=== PATIENT | female | born 1955 | race Caucasian/White ===

== ENCOUNTER 2016-12-02 11:59 | Emergency (ER) | payer OTHER ==
[2016-12-02 11:42] LABS: URINE SOURCE CLEAN CATCH
[~2016-12-02 11:59] MED LIST: AMBIEN; AMBIEN CR; AMBIEN10 MG PO; BENZONATATE PO; CIPRO PO; DELSYM30 MG/5 M1 PO; DIAZEPAM; DITROPAN5 MG PO; NORCO 5/325 TAB1 TAB; PHENERGAN25 M1 PO; PHENERGAN25 MG PO; PRINIVIL10 MG PO; PYRIDIUM PO; ZESTRIL40 MG PO; ZITHROMAX PO; ZITHROMAX1 G/PKT PO; ZOFRAN ODT4 MG PO
[2016-12-02 12:01] LABS: CULTURE INDICATED? YES; URBCS1 AUWI 0-2 /[HPF] (0-2); URINE APPEARANCE CLEAR; URINE BACTERIA AUWI 4+ (NEGATIVE); URINE BILIRUBIN NEG (NEG); URINE BLOOD NEG (NEG); URINE COLOR DK YELLOW; URINE GLUCOSE NEG (NEG); URINE KETONE TRACE (NEG); URINE LEUKOCYTE ESTERASE 1+ (NEG); URINE NITRATE POS (NEG); URINE PROTEIN NEG (NEG); URINE SQUAMOUS EPITHELIAL CELL OCC /[HPF]
== END 2016-12-02 14:38 | disposition home or self-care (01) ==
LOC: CED 11:59
PROVIDERS: Emergency Medicine
DX: N39.0 Urinary tract infection, site not specified (principal); I10 Essential (primary) hypertension; Z90.710 Acquired absence of both cervix and uterus; N81.10 Cystocele, unspecified
CPT/HCPCS: 81003; 87086; 87088; 87186; 99283

== ENCOUNTER 2017-02-02 10:18 | Emergency (ER) | payer OTHER ==
--- NOTE | ~2017-02-02 | CT4 ---
[facility] A Service of [facility] RADIOLOGY TEXT RESULTS PATIENT: KELLIE QUINTERO LOCATION: [facility] : 57 UNIT #: [id number] AGE: [address]: Inderjit Selby MD SEX: F ORDER DR: [id number] [facility] [address] [place], [place] [address] [id number] MR#: [id number] #: [id number] NAME: KELLIE QUINTERO. : 1955 SEX: F STUDY DATE/TIME: 02/02/2017 11:39 UNIT: [facility] ROOM: STUDY DESCRIPTION: CT Abd and Pelv Wo Cont Attending Physician: Inderjit Selby M.D. Ordering Physician: Inderjit Selby M.D. Primary Care Physician: Izabella Sanchez M.D. MEDICAL IMAGING REPORT This report is preliminary unless electronic signature is present EXAM CT scan of the abdomen and pelvis without contrast, 02/02/2017 HISTORY Right upper quadrant abdominal pain and vomiting for 4 days. Evaluate for obstructing renal calculus. TECHNIQUE Spiral CT was performed through the abdomen and pelvis without oral or intravenous contrast administration using renal stone protocol. This CT exam was performed with one or more of the following radiation dose reduction techniques: automatic exposure control, adjustment of mA and/or kV according to patient size, and iterative reconstruction. FINDINGS ABDOMEN: There is no obstructing renal or ureteral calculus. The kidneys are normal bilaterally. The visualized liver, spleen, pancreas and adrenal glands are normal. The gallbladder is surgically absent. PELVIS: There is colonic diverticulosis without evidence of diverticulitis. The gut is otherwise unremarkable. No adenopathy is seen and there is no free fluid in the abdomen or pelvis. The lung bases are normal. IMPRESSION 1. No obstructing renal or ureteral calculus. 2. Surgical absence of the gallbladder. 3. Diverticulosis. No evidence of diverticulitis. Dictated by... Carlos Augustin M.D. [facility] A Service [facility] RADIOLOGY TEXT RESULTS PATIENT: KELLIE QUINTERO LOCATION: [facility] : 57 UNIT #: [id number] AGE: [address]: Inderjit Selby MD SEX: F ORDER DR: THIS IS AN ELECTRONICALLY VERIFIED REPORT Carlos Augustin M.D. at 02/03/2017 8:07 AM JOSE LUIS/lorena TD: 02/02/2017 12:10 JOB #: [id number] MEDICAL IMAGING REPORT Page 1 of 1 COPY
[2017-02-02 11:39] LABS: BASOPHIL# 0.1 X10e3 (0-0.3); BASOPHIL% 0.9 % (0-2.5); EOSINOPHIL# 0.1 X10e3 (0-0.7); EOSINOPHIL% 0.6 % (0.0-7.0); HEMATOCRIT 45.2 % (35.0-45.0); HEMOGLOBIN 14.8 gm/dL (12.0-16.0); LYMPHOCYTE# 1.9 X10e3 (1.0-3.5); LYMPHOCYTE% 23.3 % (17.0-45.0); MEAN CELL VOLUME 88.1 FL (83-96); MEAN CORPUSCULAR HEMOGLOBIN 28.9 PG (28-34); MEAN CORPUSCULAR HGB CONC 32.9 g/dL (30-36); MEAN PLATELET VOLUME 7.9 FL (6.5-11.5); MONOCYTE# 0.7 X10e3 (0-1.0); MONOCYTE% 8.2 % (3.0-12.0); NEUTROPHIL# 5.3 X10e3 (1.5-7.1); PLATELET COUNT 318 X10e3 (140-420); RED BLOOD COUNT 5.13 X10e (3.90-5.30); RED CELL DISTRIBUTION WIDTH 13.9 % (11.0-15.5)
[2017-02-02 11:44] LABS: DIFF IND NO
[2017-02-02 12:04] LABS: BILIRUBIN, DIRECT 0.1 mg/dL (0.0-0.2); BILIRUBIN,TOTAL 1.1 mg/dL (0.2-2.0); CALCIUM SERUM 10.1 mg/dL (8.4-10.2); CREATININE SERUM 0.8 mg/dL (0.6-1.4); GLOM FILT RATE Estimated 79.6 mL/min (>60); POTASSIUM 3.9 mmol/L (3.5-5.1); PROTEIN TOTAL SERUM 7.8 g/dL (6.0-8.3)
[2017-02-02 12:23] LABS: URINE SOURCE CLEAN CATCH
[2017-02-02 12:30] LABS: URINE APPEARANCE CLOUDY; URINE BILIRUBIN NEG (NEG); URINE BLOOD NEG (NEG); URINE COLOR DK YELLOW; URINE GLUCOSE NEG (NEG); URINE KETONE NEG (NEG); URINE LEUKOCYTE ESTERASE 1+ (NEG); URINE NITRATE NEG (NEG); URINE PH 5.5 (5-8); URINE PROTEIN TRACE (NEG); URINE SPECIFIC GRAVITY 1.028 (1.003-1.035); URINE UROBILINOGEN 0.2 MG/DL (NEG)
[2017-02-02 12:32] LABS: URINE BACTERIA AUWI NEG (NEGATIVE); URINE SQUAMOUS EPITHELIAL CELL FEW /[HPF]
[2017-02-02 12:51] LABS: CULTURE INDICATED? NO; U HYALINE CASTS AUWI 0-2 /[LPF]
[2017-02-02 12:52] LABS: URINE AMORPHOUS SEDIMENT AMORP URATES; URINE MUCUS PRESENT; URINE YEAST PRESENT
== END 2017-02-02 14:22 | disposition home or self-care (01) ==
LOC: CED 10:18
PROVIDERS: Emergency Medicine
DX: B37.9 Candidiasis, unspecified (principal); R11.2 Nausea with vomiting, unspecified; R10.11 Right upper quadrant pain; Z90.49 Acquired absence of other specified parts of digestive tract; Z90.710 Acquired absence of both cervix and uterus
CPT/HCPCS: 36415; 74176; 80048; 80076; 81003; 82150; 83690; 85025; 96361; 96374; 99284; J2405

== ENCOUNTER 2017-04-24 18:25 | Emergency (ER) | payer OTHER ==
[~2017-04-24] VITALS: Ht 167.6 cm; Wt 99.8 kg
== END 2017-04-24 20:23 | disposition left against medical advice (07) ==
LOC: CFTX 18:25 → CED 18:25
DX: Z53.21 Procedure and treatment not carried out due to patient leaving prior to being seen by health care provider (principal)